=== PATIENT | female | born 1955 | race African-American/Black ===

== ENCOUNTER 2024-10-09 18:25 | Inpatient (IN) ==
--- NOTE | 2024-10-09 18:59 | Emergency Department Note ---
HPI - General Adult General Chief complaint: General Complaint Stated complaint: right side pain, sob Time Seen by Provider: 10/09/24 18:50 Source: patient Mode of arrival: walk-in Limitations: no limitations History of Present Illness HPI narrative: 69-year-old -[place] female, with past medical history significant for chronic bronchitis, hypertension, hyperlipidemia, coronary artery disease and seasonal allergies, presents to the ED this evening with complaints of 1 week history of wheezing, shortness of breath, right flank pain and foul-smelling urine. Admits to subjective fever, chills, nonproductive cough, nasal congestion, sore throat, periumbilical pain and diarrhea. Denies chest pain, nausea and vomiting, dysuria. Periumbilical abdominal pain and right flank pain are described as 5 out of 10 on pain scale, sharp, intermittent, last 2 to 3 minutes, occurs when having a bowel movement, worse with having a bowel movement, better with Bentyl. Onset (ago): week(s) (1) Location: Reports back (R flank) and abdomen (periumbilical) Radiation: Reports non-radiation Severity: moderate Quality: Reports sharp Pain Consistency: Reports intermittent Relieving factors: Reports other (Bentyl) Exacerbating factors: Reports other (coughing and having a bowel movement) Associated symptoms: Reports cough (nonproductive), fever/chills (subjective fever), headaches and malaise; Denies confusion, chest pain, diaphoresis, loss of appetite, nausea/vomiting, rash or syncope Treatments prior to arrival: Reports other (Bentyl and Albuterol Inhaler) Related Data Allergies Allergy/AdvReac Type Severity Reaction Status Date / Time No Known Drug Allergies Allergy Verified 10/09/24 18:38 Review of Systems Status of ROS 10 or more systems reviewed and unremark able except as noted in history and below Constitutional Reports: fever (Subjective), chills and fatigue Eyes Denies: change in vision, light sensitivity, eye discomfort or eye discharge Ears, nose, mouth, and throat Reports: throat pain and nasal congestion; Denies: neck pain, throat swelling, difficulty swallowing, hoarseness or ear pain Cardiovascular Denies: chest pain, palpitations, edema, swelling of feet/ankles or lightheadedness Respiratory Reports: shortness of breath, cough (Nonproductive), wheezing and chest congestion; Denies: stridor or pain on inspiration Gastrointestinal Reports: abdominal pain (See HPI), diarrhea and other (Denies dark, tarry stool); Denies: nausea, vomiting, heartburn, constipation or blood in stool Genitourinary Reports: other (Foul-smelling urine); Denies: painful urination, urinary frequency, urinary urgency, blood in urine, difficulty voiding, decreased urine ouput, pelvic pain, vaginal bleeding or vaginal discharge Musculoskeletal Reports: back pain (Right flank pain); Denies: neck pain, extremity pain, extremity swelling, limited range of motion or muscle weakness Integumentary/Breast Denies: rash, itching, changes in skin color or jaundice Neurological Reports: headache; Denies: numbness in extremities, weakness in extremities, lack of coordination, dizziness or difficulty communicating thoughts Psychiatric Denies: anxiety or difficulty concentrating Endocrine Reports: fatigue; Denies: excessive urination or excessive thirst Hematologic/Lymphatic Denies: easy bruising or easy bleeding Allergic/Immunologic Reports: wheezing and seasonal allergies; Denies: hives, throat swelling, tongue swelling, facial swelling or itchy eyes PFSH PFSH Medical History (Updated 10/09/24 @ 19:13 by Mindy Love APRN) CAD (coronary artery disease) HLD (hyperlipidemia) HTN (hypertension) Bronchitis Surgical History (Updated 10/09/24 @ 19:13 by Mindy Love APRN) History of partial thyroidectomy History of coronary artery bypass graft Social History (Updated 10/09/24 @ 19:13 by Mindy Love APRN) Smoking status: never smoker Within the past year, how often did you have a drink containing alcohol: never Score interpretation: A score less than 3 is consistent with normal alcohol consumption. Non-prescribed substance use: denies use Exam Constitutional: normal general appearance, no apparent distress, abnormal body habitus (overweight), no limitations and alert Vital Signs - 24 hr 10/09/24 18:31 10/09/24 19:00 10/09/24 19:30 Temperature 98.2 F Pulse Rate 105 H 103 H 95 H Respiratory Rate 20 20 20 Blood Pressure 165/88 190/112 198/114 Pulse Oximetry 92 L 92 L 95 Oxygen Delivery Me thod Room Air Room Air Room Air Oxygen Flow Rate 10/09/24 19:45 10/09/24 20:05 12/15/24 20:30 Temperature Pulse Rate 98 H 101 H Respiratory Rate 20 22 Blood Pressure 149/86 168/94 Pulse Oximetry 99 91 L 91 L Oxygen Delivery Me thod Room Air Room Air Oxygen Flow Rate 10/09/24 21:00 10/09/24 21:30 10/09/24 22:00 Temperature Pulse Rate 95 H 93 H 91 H Respiratory Rate 22 25 H 30 H Blood Pressure 158/92 176/81 168/84 Pulse Oximetry 93 L 93 L 94 L Oxygen Delivery Me thod Room Air Nasal Cannula Nasal Cannula Oxygen Flow Rate 2 2 10/09/24 22:30 10/09/24 23:00 Temperature Pulse Rate 91 H 88 Respiratory Rate 31 H 31 H Blood Pressure 176/83 Pulse Oximetry 94 L 95 Oxygen Delivery Me thod Nasal Cannula Nasal Cannula Oxygen Flow Rate 2 2 HENMT: normocephalic, head/scalp atraumatic, hearing grossly normal bilaterally, external ears normal, TMs normal bilaterally, nasal mucous membranes abnormal (nasal discharge) (Mild clear rhinorrhea), external nose normal, oral mucous membranes abnormal (dry) and oropharynx abnormal (erythema) (Mild pharyngeal erythema) Eyes: PERRL, EOMs intact bilaterally, conjunctivae normal, no scleral icterus, alignment normal and periorbital findings normal Neck/C-Spine: visual inspection normal, trachea midline, cervical spine nontender, cervical full ROM noted, supple and no meningeal signs Lymph: no lymphadenopathy noted Chest: inspection of chest normal and palpation of chest normal Respiratory: breath sounds equal bilaterally, normal respiratory effort, auscultation abnormal (diminished breath sound) (Bilateral bases), wheezing noted (expiratory wheezes) (Diffuse) and (inspiratory wheezes) (Diffuse), no rales and no use of accessory muscles Cardiovascular: heart rate abnormal (tachycardic) and regular rhythm noted Gastrointestinal: abdomen normal to inspection, abdomen soft to palpation, tender to palpation (mild), (LLQ), (RLQ), (periumbilical) and (suprapubic), nondistended, abnormal bowel sounds noted (hyperactive bowel sounds), no hepatosplenomegaly and no masses Genitourinary: CVA tenderness noted (Moderate right CVA tenderness) and bladder abnormal to palpation (tender) (Mild) Back/Pelvis: spine normal to inspection, no thoracic spine tenderness, no lumbar spine tenderness, thoracic spine ROM normal and lumbar spine ROM normal Extremities: normal to inspection, normal to palpation, no tenderness, full ROM and no deformity Neurology: radio broadcaster II-XII intact, no movement abnormality noted, no focal motor deficit noted, no sensory deficits noted, gait normal, speech normal, coordination normal and GCS normal Psychiatry: mental status grossly normal, oriented x3, thought process normal, cooperative and affect normal Skin: skin color normal, no rash, skin turgor normal and no jaundice Course Vital Signs Vital signs: Vital Signs Temperature 98.2 F 10/09/24 18:31 Pulse Rate 105 H 10/09/24 18:31 Respiratory Rate 20 10/09/24 18:31 Blood Pressure 165/88 10/09/24 18:31 Pulse Oximetry 92 L 10/09/24 18:31 Oxygen Delivery Method Room Air 10/09/24 18:31 Temperature 98.2 F 10/10/24 02:00 Pulse Rate 83 10/10/24 02:00 Respiratory Rate 25 H 10/10/24 02:00 Blood Pressure 138/85 10/10/24 02:00 Pulse Oximetry 97 10/10/24 02:00 Oxygen Delivery Method Nasal Cannula 10/10/24 02:00 Oxygen Flow Rate 2 10/10/24 02:00 Medical Decision Making MDM Narrative Medical decision making narrative: COVID, influenza and strep swabs are all negative. CBC within normal limits except for WBC 12.9H, MCHC 32.2L. CMP within normal limits except for sodium is 130L, potassium is 3.1L, chloride 94.0L, glucose 168H, AST 39H, total protein 8.7H, albumin 2.9L. Lipase is within normal limits. Initial CPK is elevated at 417H, troponin within normal limits at 28.90. 2-hour repeat CPK and troponin are 415H and 30.10 (WNL). BNP elevated at 559.0H. Lactate is WNL. ABG is within normal limits except for pH 7.49H, pO2 50L, HCO3 20 9.7H, O2 saturation 88L, base excess 5.9H. ABG was obtained on room air. Patient placed on 2 L normal O2 via nasal cannula with improvement in O2 sat from 90% to 96%. Chest x-ray reveals "Findings consistent with minimal CHF or volume overload in the appropriate clinical setting; DDX includes (but is not limited to) bronchitis and interstitial pneumonia in the appropriate clinical setting; recommend noncontrasted CT of chest for further evaluation. D-dimer is elevated at [address] angio chest (PE protocol) with contrast reveals no evidence of PE; otherwise, mild cardiomegaly". Urinalysis is within normal limits except for 4+ protein, 1+ occult blood few amorphous sediment, few bacteria, few mucus. Urine Cx pending. While in ED, patient received 1 L normal saline IV fluid bolus, followed by maintenance fluids of normal saline at 125 mL/hr. She also received 1 albuterol neb and 125 mg IV Solu-Medrol, as well as 40 mEq p.o. potassium. I have discussed the clinical case, including pertinent positives and negatives with Christy and utilization review, and the need for further testing/observation in the inpatient arena. She agrees patient is appropriate for observation status. I have made the patient and family aware of the current disposition plan and they are in agreement. Will admit for rehydration, oxygen administration, IV steroids and respiratory treatments. Differential diagnosis includes: asthma exacerbation, influenza, COVID, viral URI, COPD exacerbation, asthma, interstitial lung disease, myocardial dysfunction, CHF, pulmonary edema, obesity, deconditioning syndrome, pulmonary embolism, bronchitis, pneumonia, rib fractures, pneumothorax, hemothorax, pneumonitis, sepsis, dehydration, nephrolithiasis, pyelonephritis, STEMI, NSTEMI, rhabdomyolysis, respiratory failure. Medical Records Medical records reviewed: Yes I reviewed the patient's medical records Lab Data Lab results reviewed: Yes I reviewed the patient's lab results Labs: Lab Results 10/09/24 10/09/24 10/09/24 Range/Units 18:35 18:59 18:59 WBC (4.3-9.3) K/uL RBC (4.00-5.50) M/uL Hgb (12.5-15.8) gm/dL Hct (35.9-46.7) % MCV (81.0-93.7) fl MCH (27.6-32.2) pg MCHC (33.1-35.3) g/dl RDW (11.4-14.2) % Plt Count (152-353) K/uL MPV (6.9-10.8) fl Gran % (47.8-71.3) % Lymph % (Auto) (20.0-43.0) % [place] % (Auto) (3.6-9.8) % Eos % (Auto) (0.4-2.8) % Baso % (Auto) (0.1-0.85) Lymph # (Auto) (1.1-3.1) [place] # (Auto) (1.1-3.1) Eos # (Auto) (0.0-0.2) Baso # (Auto) (0.0-0.1) Absolute Gran (auto) (2.3-6.0) D-Dimer (100-600) ng/mL ABG pH 7.49 H (7.35-7.45) ABG pCO2 39 (35-45) mmHg ABG pO2 50 L* 101 (60-100) mmHg ABG PO2/FiO2 Ratio 0.50 ABG HCO3 29.7 H (22-26) mmo1/L ABG Total CO2 30.9 mmo1/L ABG O2 Saturation 88 L* (92-100) % ABG Base Excess 5.9 H (-2-2) mmo1/L A-a O2 Gradient 51 mmHg Respiratory Index 1.0 (0-1) FiO2 21 % Sodium (136-145) mmol/L Potassium (3.6-5.2) mmol/L Chloride (98-107) mmol/L Carbon Dioxide (21-32) mmol/L Anion Gap (4-14) mEq/L BUN (7-18) mg/dL Creatinine (0.6-1.3) mg/dL Estimated GFR (>59.9) Glucose (70-110) mg/dL Lactic Acid (0.27-1.43) mmol/L Calcium (8.5-10.1) mg/dL Total Bilirubin (0.0-1.0) mg/dL AST (15-37) U/L ALT (30-65) U/L Alkaline Phosphatase (50-136) U/L Total Creatine Kinase (26-192) U/L Troponin I High Sens (4.0-60.4) ng/L B-Natriuretic Peptide (0-100) pg/mL Total Protein (6.4-8.2) g/dL Albumin (3.4-5.0) g/dL Lipase (16.0-77.0) U/L Urine Color Yellow (STRAW/YELL.) Urine Appearance Clear (CLEAR) Ur Specific [place] 1.015 (1.001-1.035) Urine Protein 4+ (NEGATIVE) Urine Glucose (UA) Normal (NORMAL) Urine Ketones Negative (NEGATIVE) Urine Occult Blood 1+ (NEG - TRACE) Urine Nitrite Negative (NEGATIVE) Urine Bilirubin Negative (NEGATIVE) Urine Urobilinogen Normal (NORMAL) Ur Leukocyte Esterase Negative (NEGATIVE) Urine RBC 0 - 2 (0 - 5) Urine WBC 0 - 2 ( 0 - 5) Ur Epithelial Cells Few (Few/HPF) Amorphous Sediment Few (Negative) Urine Bacteria Few (Negative) Urine Mucus Few (Negative) Urine Trichomonas Negative (Negative) Urine Yeast Negative (Negative) Fluid pH 5.0 (5 - 9) COVID-19 ([facility]) (Not Detectd) Influenza Type A Ag (Negative) Influenza Type B Ag (Negative) Streptococcus Screen (Negative) 10/09/24 10/09/24 10/09/24 Range/Units 19:25 20:20 21:55 WBC 12.9 H (4.3-9.3) K/uL RBC 4.7 (4.00-5.50) M/uL Hgb 13.1 (12.5-15.8) gm/dL Hct 40.8 (35.9-46.7) % MCV 87.2 (81.0-93.7) fl MCH 28.1 (27.6-32.2) pg MCHC 32.2 L (33.1-35.3) g/dl RDW 14.0 (11.4-14.2) % Plt Count 263 (152-353) K/uL MPV 8.3 (6.9-10.8) fl Gran % 70.9 (47.8-71.3) % Lymph % (Auto) 20.6 (20.0-43.0) % [place] % (Auto) 6.8 (3.6-9.8) % Eos % (Auto) 1.1 (0.4-2.8) % Baso % (Auto) 0.6 (0.1-0.85) Lymph # (Auto) 2.7 (1.1-3.1) [place] # (Auto) 0.9 L (1.1-3.1) Eos # (Auto) 0.1 (0.0-0.2) Baso # (Auto) 0.1 (0.0-0.1) Absolute Gran (auto) 9.1 H (2.3-6.0) D-Dimer 1230 H (100-600) ng/mL ABG pH (7.35-7.45) ABG pCO2 (35-45) mmHg ABG pO2 (60-100) mmHg ABG PO2/FiO2 Ratio ABG HCO3 (22-26) mmo1/L ABG Total CO2 mmo1/L ABG O2 Saturation (92-100) % ABG Base Excess (-2-2) mmo1/L A-a O2 Gradient mmHg Respiratory Index (0-1) FiO2 % Sodium 130 L (136-145) mmol/L Potassium 3.1 L (3.6-5.2) mmol/L Chloride 94.0 L (98-107) mmol/L Carbon Dioxide 28 (21-32) mmol/L Anion Gap 8.0 (4-14) mEq/L BUN 6 L (7-18) mg/dL Creatinine 0.8 (0.6-1.3) mg/dL Estimated GFR 79.7 (>59.9) Glucose 168 H (70-110) mg/dL Lactic Acid 0.8 (0.27-1.43) mmol/L Calcium 9.4 (8.5-10.1) mg/dL Total Bilirubin 0.62 (0.0-1.0) mg/dL AST 39 H (15-37) U/L ALT 47 (30-65) U/L Alkaline Phosphatase 105 (50-136) U/L Total Creatine Kinase 417 H 415 H (26-192) U/L Troponin I High Sens 28.90 30.10 (4.0-60.4) ng/L B-Natriuretic Peptide 559.0 H (0-100) pg/mL Total Protein 8.7 H (6.4-8.2) g/dL Albumin 2.9 L (3.4-5.0) g/dL Lipase 16.0 (16.0-77.0) U/L Urine Color (STRAW/YELL.) Urine Appearance (CLEAR) Ur Specific [place] (1.001-1.035) Urine Protein (NEGATIVE) Urine Glucose (UA) (NORMAL) Urine Ketones (NEGATIVE) Urine Occult Blood (NEG - TRACE) Urine Nitrite (NEGATIVE) Urine Bilirubin (NEGATIVE) Urine Urobilinogen (NORMAL) Ur Leukocyte Esterase (NEGATIVE) Urine RBC (0 - 5) Urine WBC ( 0 - 5) Ur Epithelial Cells (Few/HPF) Amorphous Sediment (Negative) Urine Bacteria (Negative) Urine Mucus (Negative) Urine Trichomonas (Negative) Urine Yeast (Negative) Fluid pH (5 - 9) COVID-19 ([facility]) Not detected (Not Detectd) Influenza Type A Ag Negative (Negative) Influenza Type B Ag Negative (Negative) Streptococcus Screen Negative (Negative) Imaging Data Chest x-ray: Attestation: I have reviewed the pertinent imaging results. Radiologist's impression: EXAM: CHEST X-RAY HISTORY: Dyspnea. Cough. Subjective fever. TECHNIQUE: AP chest x-ray dated October 09 2024 at 7:37 PM. COMPARISON: None. FINDINGS: There is aortic atherosclerosis. The patient status post median sternotomy, presumably for CABG. There is evidence for cardiomegaly. The pulmonary vascularity and interstitial markings are diffusely prominent, consistent with minimal CHF or volume overload in the appropriate clinical setting; differential diagnosis includes (but is not limited to) bronchitis and interstitial pneumonia in the appropriate clinical setting. There is no gross focal lung consolidation, pleural effusion, or pneumothorax seen. The visualized bony structures are within normal limits. IMPRESSION: 1. Findings consistent with minimal CHF or volume overload in the appropriate clinical setting; DDX includes (but is not limited to) bronchitis and interstitial pneumonia in the appropriate clinical setting. 2. Recommend clinical correlation and appropriate follow-up CXR evaluation to ensure interval clearance as clinically warranted. 3. Consider follow-up noncontrast chest CT for further characterization as clinically warranted. THIS IS AN ELECTRONICALLY VERIFIED FINAL REPORT 10/09/2024 9:04 PM - Electronically signed by Vasiliy Holman MD CT scan - abdomen: Attestation: I have reviewed the pertinent imaging results. Radiologist's impression: ADDENDUM BEGINS ADDENDUM: Please disregard impression 2. The patient has undergone a cholecystectomy. Impression 2 should read, "Colonic diverticulosis without diverticulitis. " THIS IS AN ELECTRONICALLY VERIFIED FINAL REPORT 10/09/2024 11:37 PM - Electronically signed by Wayne Cool MD EXAM: CT ABDOMEN PELVIS W CON HISTORY: Right flank and periumbilical abdominal pain. COMPARISON: None. TECHNIQUE: Axial CT images of the abdomen and pelvis were obtained after the administration of 100 mL Isovue 370 IV contrast and reformatted into coronal and sagittal planes for further evaluation. Radiation dose: 1942.2 mGy-cm total DLP FINDINGS: Lung bases are clear. Stomach appears normal. Solid visceral organs of the upper abdomen are unremarkable. Status post cholecystectomy. Homogeneous enhancement of the kidneys without hydronephrosis or hydroureter. Unremarkable appearance of the urinary bladder. Small calcified fibroid in the uterine fundus. Otherwise, unremarkable appearance of the reproductive structures. Colonic diverticulosis without diverticulitis. Otherwise, unremarkable appearance of the small and large bowel. No evidence of acute appendicitis; although the appendix is not clearly delineated. No pneumoperitoneum. No significant fluid collection. No adenopathy. No acute osseous abnormality. IMPRESSION: 1. No acute intra-abdominal abnormality detected. 2. Cholelithiasis without imaging findings of acute cholecystitis. THIS IS AN ELECTRONICALLY VERIFIED FINAL REPORT 10/09/2024 10:27 PM - Electronically signed by Wayne Cool MD ADDENDUM ENDS EXAM: CT ABDOMEN PELVIS W CON HISTORY: Right flank and periumbilical abdominal pain. COMPARISON: None. TECHNIQUE: Axial CT images of the abdomen and pelvis were obtained after the administration of 100 mL Isovue 370 IV contrast and reformatted into coronal and sagittal planes for further evaluation. Radiation dose: 1942.2 mGy-cm total DLP FINDINGS: Lung bases are clear. Stomach appears normal. Solid visceral organs of the upper abdomen are unremarkable. Status post cholecystectomy. Homogeneous enhancement of the kidneys without hydronephrosis or hydroureter. Unremarkable appearance of the urinary bladder. Small calcified fibroid in the uterine fundus. Otherwise, unremarkable appearance of the reproductive structures. Colonic diverticulosis without diverticulitis. Otherwise, unremarkable appearance of the small and large bowel. No evidence of acute appendicitis; although the appendix is not clearly delineated. No pneumoperitoneum. No significant fluid collection. No adenopathy. No acute osseous abnormality. IMPRESSION: 1. No acute intra-abdominal abnormality detected. 2. Cholelithiasis without imaging findings of acute cholecystitis. THIS IS AN ELECTRONICALLY VERIFIED FINAL REPORT 10/09/2024 10:27 PM - Electronically signed by Wayne Cool MD CT scan - chest: Attestation: I have reviewed the pertinent imaging results. Radiologist's impression: EXAM: CTA CHEST WITH CONTRAST HISTORY: elevated D Dimer, Dyspneaelevated D Dimer, Dyspnea; 370 isovue, 100 ml hx: htn, cad sx: cabg COMPARISON: None. TECHNIQUE: Axial images were acquired of the chest with IV contrast for a CT angiogram. Coronal and sagittal images were provided. All images were reviewed in a variety of windows and levels. 3D 8 mm thick MIPS images were provided. RADIATION REDUCTION TECHNIQUE: Automated exposure control, Adjustment of the mA and/or kV according to patient size, or iterative reconstruction techniques were used. 8 mm thick axial MIPS images were provided. FINDINGS: THYROID GLAND: The thyroid gland is unremarkable. HEART AND VESSELS: The heart size is mildly enlarged. There is no evidence of a pericardial effusion. The thoracic aorta is normal in size without evidence of aneurysm or dissection. The main pulmonary artery size is within normal limits. There are no filling defects seen in the visualized pulmonary arteries to suggest a pulmonary embolism. LYMPHNODES: There is no evidence of axillary, mediastinal, or hilar lymphadenopathy, AIRWAY: The trachea and mainstem bronchi are patent. No intraluminal lesions are seen. LUNGS: The lungs are clear bilaterally. There is no evidence of consolidation, pleural effusion, or pneumothorax. ESOPHAGUS: The esophagus is grossly unremarkable. BONES: The visualized bones demonstrate degenerative changes. There are no concerning lytic or blastic lesions identified. UPPER ABDOMINAL STRUCTURES: The visualized portions of the upper abdominal structures demonstrate post cholecystectomy changes. IMPRESSION: Negative CT pulmonary angiogram; no evidence of pulmonary embolic disease. Mild cardiomegaly. No active cardiopulmonary disease THIS IS AN ELECTRONICALLY VERIFIED FINAL REPORT 10/09/2024 10:26 PM - Electronically signed by Buster Armenta MD ECG Data Attestation: I personally reviewed and interpreted this ECG as follows: Prior ECG tracings: not available for review Interpretation: Normal sinus rhythm Rate 99 RR 608 Left atrial enlargement Normal [place] Q waves, diffuse flattened T waves, leads III, aVL, aVF, V3, V4, V5, V6 Inverted T waves, leads V1 and V2 Prolonged QTc interval Critical Care Time Critical Care Time Critical Care Time: Yes Total Critical Care Time: 60 Attestation: Cardiopulmonary workup to include continuous cardiac monitoring, oxygen administration, chest x-ray, CT abdomen and pelvis with contrast, CT angio chest (PE protocol) with contrast, EKG, CBC, CMP, lipase, initial and repeat CPK and troponin, BNP, D-dimer, lactic acid, ABG, urinalysis. While in ED patient received 1 L normal saline IV fluid bolus, followed by normal saline at 125 mL/h, 1 albuterol neb, 125 mg IV Solu-Medrol, 40 mEq p.o. potassium. Arrangements made for patient to be admitted to observation status given her hypoxemia and oxygen requirement, rhabdomyolysis, dehydration and electrolyte imbalance. Discharge Plan Discharge Patient Disposition: Admitted As Observation Condition: Improved Clinical Impression: Hypoxemia, Acute dyspnea, Mild cardiomegaly, Periumbilical abdominal pain, Acute dehydration, Acute hyponatremia, Acute hypokalemia, Hypochloremia, Rhabdomyolysis, Acute respiratory alkalosis, Metabolic alkalosis, Proteinuria, Hypoalbuminemia, Leukocytosis, Acute right flank pain, Acute bronchitis, Wheezing, Viral URI Interventions: ED Discharge Assessment Last Done: 10/10/24 02:00 ED Discharge Vital Sign Last Done: 10/10/24 02:00 Emergency Department Charge Sheet Last Done: 10/09/24 23:55 Time of Disposition: 00:08 Discharge Date/Time: 10/10/24 02:00
[2024-10-09] MEDS ORDERED: 0.9 % SODIUM CHLORIDE 1000 ML 1,000 ML IV ONE (19:12)
[2024-10-09] MEDS ORDERED: METHYLPREDNISOLONE SOD SUCC/PF 125 MG/2 ML VIAL ONE (19:13)
[2024-10-09] MEDS: ALBUTEROL SULFATE 2.5 MG/3 ML VIAL.NEB INH STA (19:30)
[2024-10-09] MEDS: 0.9 % SODIUM CHLORIDE 1000 ML 1,000 ML IV STA (19:35)
[2024-10-09] MEDS: METHYLPREDNISOLONE SOD SUCC/PF 125 MG/2 ML VIAL IVP ONE (19:35)
[2024-10-09 19:40] LABS: Basophils #(Absolute) Auto 0.1 (0.0-0.1); Basophils%(Percent) Auto 0.6 (0.1-0.85); Eosinophils#(Absolute)Auto 0.1 (0.0-0.2); Eosinophils%(Percent) Auto 1.1 % (0.4-2.8); Granulocytes % - Auto 70.9 % (47.8-71.3); Granulocytes#(Absolute)- Auto 9.1 (2.3-6.0); Hematocrit 40.8 % (35.9-46.7); Mean Corpuscular Volume 87.2 fl (81.0-93.7); Monocytes #(Absolute)- Auto 0.9 (1.1-3.1); Monocytes %(Percent)- Auto 6.8 % (3.6-9.8); Platelet Count 263 K/uL (152-353); White Blood Count 12.9 K/uL (4.3-9.3)
[2024-10-09 20:00] LABS: Potassium 3.1 mmol/L (3.6-5.2)
[2024-10-09 20:07] LABS: PCO2 ABG 39 mmHg (35-45); pH ABG 7.49 (7.35-7.45)
[2024-10-09 20:08] LABS: Base Excess ABG 5.9 mmo1/L (-2-2); PO2 ABG 50 mmHg (60-100)
[2024-10-09 20:09] LABS: Oxygen Saturation ABG 88 % (92-100)
[2024-10-09] MEDS ORDERED: POTASSIUM CHLORIDE 20 MEQ TAB.ER.PRT PO ONE (20:49)
[2024-10-09] MEDS: POTASSIUM CHLORIDE 20 MEQ TAB.ER.PRT PO ONE (20:50)
[2024-10-09 23:54] LABS: Specific Gravity Urine 1.015 (1.001-1.035); Urine Appearance CLEAR (CLEAR); Urine Blood 1+ (NEG - TRACE); Urine Color YELLOW (STRAW/YELL.); Urine Urobilinogen Normal (NORMAL)
[2024-10-10] MEDS: 0.9 % SODIUM CHLORIDE 1000 ML 1,000 ML IV STA (00:26)
[2024-10-10] MEDS ORDERED: 0.9 % SODIUM CHLORIDE 1000 ML 1,000 ML IV ONE (00:27)
[2024-10-10 00:36] LABS: Urine Amorphous Sediment Few (Negative); Urine Yeast Negative (Negative)
[2024-10-10] MEDS ORDERED: ACETAMINOPHEN 500 MG TABLET PO PRN ×2 (02:13→12:00)
[2024-10-10] MEDS ORDERED: ONDANSETRON HCL/PF 4 MG/2 ML VIAL INJ PRN (02:13)
[2024-10-10] MEDS ORDERED: IBUPROFEN 400 MG TABLET PO PRN ×2 (02:13→12:00)
[2024-10-10] MEDS ORDERED: MAGNESIUM, ALUMINUM HYDROXIDE 30 ML ORAL.SUSP PO PRN (02:13)
[2024-10-10] MEDS ORDERED: bisacodyL 10 MG SUPP.RECT PR PRN (02:13)
[2024-10-10] MEDS: 0.9 % SODIUM CHLORIDE 1000 ML 1,000 ML IV SCH (03:24)
[2024-10-10] MEDS: METHYLPREDNISOLONE SOD SUCC/PF 125 MG/2 ML VIAL IVP ONE (03:27)
[2024-10-10] MEDS ORDERED: ALBUTEROL SULFATE 2.5 MG/3 ML VIAL.NEB INH ONE (04:27)
[2024-10-10] MEDS: ALBUTEROL SULFATE 2.5 MG/3 ML VIAL.NEB INH SCH (05:02)
[2024-10-10] MEDS: METHYLPREDNISOLONE SOD SUCC/PF 40 MG/ML VIAL INJ SCH (09:12)
[2024-10-10] MEDS: ENOXAPARIN SODIUM 40 MG/0.4 ML SYRINGE SUBQ SCH (09:12)
[2024-10-10] MEDS: PANTOPRAZOLE SODIUM 40 MG TABLET.DR PO SCH (09:12)
[2024-10-10] MEDS: guaiFENesin 600 MG TAB.ER.12H PO SCH (12:20)
--- NOTE | 2024-10-10 14:15 | History & Physical Report ---
H&P: HPI History of Present Illness Chief complaint: HYPOXEMIA,DYSPNEA,ACUTE BRONCHITIS,RHABDO,DEHYDRAT Narrative: 69-year-old -[place] female, with past medical history significant for chronic bronchitis, hypertension, hyperlipidemia, coronary artery disease and seasonal allergies, presents to the ED this evening with complaints of 1 week history of wheezing, shortness of breath, right flank pain and foul-smelling urine. Admits to subjective fever, chills, nonproductive cough, nasal congestion, sore throat, periumbilical pain and diarrhea. Denies chest pain, nausea and vomiting, dysuria. Periumbilical abdominal pain and right flank pain are described as 5 out of 10 on pain scale, sharp, intermittent, last 2 to 3 minutes, occurs when having a bowel movement, worse with having a bowel movement, better with Bentyl. Admitted to med/surg for observation and treatment. Review of Systems Status of ROS 10 or more systems reviewed and unremark able except as noted in history and below Constitutional Reports: fever (Subjective), chills and fatigue Eyes Denies: change in vision, light sensitivity, eye discomfort or eye discharge Ears, nose, mouth, and throat Reports: throat pain and nasal congestion; Denies: neck pain, throat swelling, difficulty swallowing, hoarseness or ear pain Cardiovascular Reports: shortness of breath with exertion; Denies: chest pain, palpitations, edema, swelling of feet/ankles or lightheadedness Respiratory Reports: shortness of breath, cough (Nonproductive), wheezing and chest congestion; Denies: stridor or pain on inspiration Gastrointestinal Reports: abdominal pain (See HPI), diarrhea and other (Denies dark, tarry stool); Denies: nausea, vomiting, heartburn, constipation, difficulty swallowing or blood in stool Genitourinary Reports: other (Foul-smelling urine); Denies: painful urination, urinary frequency, urinary urgency, blood in urine, difficulty voiding, decreased urine ouput, pelvic pain, vaginal bleeding or vaginal discharge Musculoskeletal Reports: back pain (Right flank pain); Denies: neck pain, extremity pain, extremity swelling, limited range of motion or muscle weakness Integumentary/Breast Denies: rash, itching, changes in skin color or jaundice Neurological Reports: headache; Denies: numbness in extremities, weakness in extremities, lack of coordination, dizziness or difficulty communicating thoughts Psychiatric Denies: anxiety or difficulty concentrating Endocrine Reports: fatigue; Denies: excessive urination or excessive thirst Hematologic/Lymphatic Denies: easy bruising or easy bleeding Allergic/Immunologic Reports: wheezing and seasonal allergies; Denies: hives, throat swelling, tongue swelling, facial swelling or itchy eyes PFSH PFSH Medical History (Updated 10/10/24 @ 14:09 by LIZ Jin) CAD (coronary artery disease) HLD (hyperlipidemia) HTN (hypertension) Bronchitis Surgical History (Updated 10/09/24 @ 19:13 by Mindy Love APRN) History of partial thyroidectomy History of coronary artery bypass graft Social History (Updated 10/09/24 @ 19:13 by Mindy Love APRN) Smoking status: never smoker Within the past year, how often did you have a drink containing alcohol: never Score interpretation: A score less than 3 is consistent with normal alcohol consumption. Non-prescribed substance use: denies use Problems where you live: no known problems Highest level of school completed/degree received: College Do you think of yourself as: straight/heterosexual Gender Identity: female Meds Home Medications and Allergies Home Medications Medication Instructions Recorded Confirmed Type albuterol sulfate 90 mcg/actuation 1 puff inhalation Q6H PRN 10/10/24 10/10/24 History aerosol inhaler shortness of breath or wheezing amlodipine 10 mg tablet 10 mg PO DAILY 10/10/24 10/10/24 History aspirin 81 mg tablet,delayed 81 mg PO DAILY 10/10/24 10/10/24 History release (Ecotrin Low Strength) atorvastatin 20 mg tablet 20 mg PO DAILY 10/10/24 10/10/24 History cetirizine 10 mg tablet 10 mg PO DAILY PRN allergy symptoms 10/10/24 10/10/24 History diclofenac sodium 75 mg 75 mg PO BID 10/10/24 10/10/24 History tablet,delayed release fexofenadine 180 mg tablet 180 mg PO DAILY PRN allergy 10/10/24 10/10/24 History (Allergy Relief (fexofenadine)) symptoms fluticasone propionate 100 1 inh inhalation BID 10/10/24 10/10/24 History mcg/actuation blister powder for inhalation (Flovent Diskus) fluticasone propionate 50 1 spray intranasal DAILY 10/10/24 10/10/24 History mcg/actuation nasal spray,suspension metoprolol tartrate 25 mg tablet 12.5 mg PO BID 10/10/24 10/10/24 History sertraline 50 mg tablet 50 mg PO BEDTIME 10/10/24 10/10/24 History Allergies Allergy/AdvReac Type Severity Reaction Status Date / Time No Known Drug Allergies Allergy Verified 10/09/24 18:38 Exam Exam: Patient in parson's position upon entering room for exam with family member at bedside. Constitutional: normal general appearance, no apparent distress, abnormal body habitus (overweight), no limitations and alert Vital Signs - 24 hr 10/09/24 18:31 10/09/24 19:00 10/09/24 19:30 Temperature 98.2 F Pulse Rate 105 H 103 H 95 H Pulse Rate [Left] Respiratory Rate 20 20 20 Blood Pressure 165/88 190/112 198/114 Blood Pressure [Le ft Arm] Pulse Oximetry 92 L 92 L 95 Oxygen Delivery Me thod Room Air Room Air Room Air Oxygen Flow Rate 10/09/24 19:45 10/09/24 20:05 10/09/24 20:30 Temperature Pulse Rate 98 H 101 H Pulse Rate [Left] Respiratory Rate 20 22 Blood Pressure 149/86 168/94 Blood Pressure [Le ft Arm] Pulse Oximetry 99 91 L 91 L Oxygen Delivery Me thod Room Air Room Air Oxygen Flow Rate 10/09/24 21:00 10/09/24 21:30 10/09/24 22:00 Temperature Pulse Rate 95 H 93 H 91 H Pulse Rate [Left] Respiratory Rate 22 25 H 30 H Blood Pressure 158/92 176/81 168/84 Blood Pressure [Le ft Arm] Pulse Oximetry 93 L 93 L 94 L Oxygen Delivery Me thod Room Air Nasal Cannula Nasal Cannula Oxygen Flow Rate 2 2 10/09/24 22:30 10/09/24 23:00 10/10/24 01:00 Temperature Pulse Rate 91 H 88 88 Pulse Rate [Left] Respiratory Rate 31 H 31 H 22 Blood Pressure 176/83 137/87 Blood Pressure [Le ft Arm] Pulse Oximetry 94 L 95 94 L Oxygen Delivery Me thod Nasal Cannula Nasal Cannula Nasal Cannula Oxygen Flow Rate 2 2 2 10/10/24 02:00 10/10/24 02:00 10/10/24 02:15 Temperature 98.2 F Pulse Rate 83 83 Pulse Rate [Left] Respiratory Rate 25 H 25 H 28 H Blood Pressure 138/85 138/85 Blood Pressure [Le ft Arm] Pulse Oximetry 97 97 98 Oxygen Delivery Me thod Nasal Cannula Nasal Cannula Oxygen Flow Rate 2 2 10/10/24 04:00 10/10/24 05:02 10/10/24 07:40 Temperature 97.9 F Pulse Rate Pulse Rate [Left] 79 Respiratory Rate 17 Blood Pressure Blood Pressure [Le ft Arm] 142/76 Pulse Oximetry 95 93 L Oxygen Delivery Me thod Nasal Cannula Nasal Cannula Oxygen Flow Rate 2 10/10/24 07:40 10/10/24 08:15 10/10/24 11:23 Temperature 97.7 F Pulse Rate Pulse Rate [Left] 75 Respiratory Rate 19 Blood Pressure Blood Pressure [Le ft Arm] 135/73 Pulse Oximetry 92 L 96 98 Oxygen Delivery Me thod Nasal Cannula Nasal Cannula Oxygen Flow Rate 1 0.5 10/10/24 12:43 Temperature 98.3 F Pulse Rate Pulse Rate [Left] 84 Respiratory Rate 19 Blood Pressure Blood Pressure [Le ft Arm] 132/62 Pulse Oximetry 97 Oxygen Delivery Me thod Room Air Oxygen Flow Rate HENMT: normocephalic, head/scalp atraumatic, hearing grossly normal bilaterally, external ears normal, TMs normal bilaterally, nasal mucous membranes abnormal (nasal discharge) (Mild clear rhinorrhea), external nose normal, oral mucous membranes abnormal (dry) and oropharynx abnormal (erythema) (Mild pharyngeal erythema) Eyes: PERRL, EOMs intact bilaterally, conjunctivae normal, no scleral icterus, alignment normal and periorbital findings normal Neck/C-Spine: visual inspection normal, trachea midline, cervical spine nontender, cervical full ROM noted, supple and no meningeal signs Lymph: no lymphadenopathy noted Chest: inspection of chest normal and palpation of chest normal Respiratory: breath sounds equal bilaterally, normal respiratory effort, auscultation abnormal (diminished breath sound) (Bilateral bases), wheezing noted (expiratory wheezes) (Diffuse) and (inspiratory wheezes) (Diffuse), no rales and no use of accessory muscles Cardiovascular: heart rate abnormal (tachycardic) and regular rhythm noted Gastrointestinal: abdomen normal to inspection, abdomen soft to palpation, tender to palpation (mild), (LLQ), (RLQ), (periumbilical) and (suprapubic), nondistended, abnormal bowel sounds noted (hyperactive bowel sounds), no hepatosplenomegaly and no masses Genitourinary: CVA tenderness noted (Moderate right CVA tenderness) and bladder abnormal to palpation (tender) (Mild) Back/Pelvis: spine normal to inspection, no thoracic spine tenderness, no lumbar spine tenderness, thoracic spine ROM normal and lumbar spine ROM normal Extremities: normal to inspection, normal to palpation, no tenderness, full ROM and no deformity 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: 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, no movement abnormality noted, no focal motor deficit noted, no sensory deficits noted, gait normal, speech normal, coordination normal and GCS normal Psychiatry: mental status grossly normal, oriented x3, thought process normal, cooperative and affect normal Skin: skin color normal, no rash, skin turgor normal and no jaundice Assessment and Plan Assessment and Plan (1) Acute bronchitis: Code(s): J20.9 - Acute bronchitis, unspecified (2) SOB (shortness of breath): Code(s): R06.02 - Shortness of breath (3) Hypoxia: Code(s): R09.02 - Hypoxemia (4) Dyspnea: Code(s): R06.00 - Dyspnea, unspecified (5) Rhabdomyolysis: Code(s): M62.82 - Rhabdomyolysis (6) Dehydration: Code(s): E86.0 - Dehydration Plan Sodium Chloride 1,000 mls @ 125 mls/hr IV CONT Methylprednisolone Sodium Succinate 40 mg INJ Q8H Albuterol 2.5 mg INH RQ4 Pantoprazole Sodium 40 mg PO Daily Enoxaparin Sodium 40 mg SUBQ Daily Guaifenesin 600 mg PO BID Acetaminophen 1,000 mg PO Q6H PRN Magnesium Hydroxide 30 ml PO Daily PRN Bisacodyl 10 mg IA Daily PRN Ibuprofen 600 mg PO Q8H PRN Ondansetron Hcl 4 mg INJ Q6H PRN Results Labs Labs: CBC WBC 12.9 K/uL (4.3-9.3) H 10/09/24 19:25 RBC 4.7 M/uL (4.00-5.50) 10/09/24 19:25 Hgb 13.1 gm/dL (12.5-15.8) 10/09/24 19:25 Hct 40.8 % (35.9-46.7) 10/09/24 19:25 MCV 87.2 fl (81.0-93.7) 10/09/24 19: MCH 28.1 pg (27.6-32.2) 10/09/24 19: MCHC 32.2 g/dl (33.1-35.3) L 10/09/24 19:25 RDW 14.0 % (11.4-14.2) 10/09/24 19:25 Plt Count 263 K/uL (152-353) 10/09/24 19:25 MPV 8.3 fl (6.9-10.8) 10/09/24 19:25 Gran % 70.9 % (47.8-71.3) 10/09/24 19: Lymph % (Auto) 20.6 % (20.0-43.0) 10/09/24: Ness % (Auto) 6.8 % (3.6-9.8) 10/09/24 19:25 Eos % (Auto) 1.1 % (0.4-2.8) 10/09/24 19: Baso % (Auto) 0.6 (0.1-0.85) 10/09/24 19:25 Lymph # (Auto) 2.7 (1.1-3.1) 10/09/24 19:25 Ness # (Auto) 0.9 (1.1-3.1) L 10/09/24 19:25 Eos # (Auto) 0.1 (0.0-0.2) 10/09/24 19:25 Baso # (Auto) 0.1 (0.0-0.1) 10/09/24: Absolute Gran (auto) 9.1 (2.3-6.0) H 10/09/24 19:25 BMP Sodium 130 mmol/L (136-145) L 10/09/24 19:25 Potassium 3.1 mmol/L (3.6-5.2) L 10/09/24 19:25 Chloride 94.0 mmol/L (98-107) L 10/09/24 19:25 Carbon Dioxide 28 mmol/L (21-32) 10/09/24 19:25 Anion Gap 8.0 mEq/L (4-14) 10/09/24 19:25 BUN 6 mg/dL (7-18) L 10/09/24 19:25 Creatinine 0.8 mg/dL (0.6-1.3) 10/09/24 19:25 Estimated GFR 79.7 (>59.9) 10/09/24 19:25 Glucose 168 mg/dL (70-110) H 10/09/24 19:25 Calcium 9.4 mg/dL (8.5-10.1) 10/09/24 19:25 Total Bilirubin 0.62 mg/dL (0.0-1.0) 10/09/24 19:25 AST 39 U/L (15-37) H 10/09/24 19:25 ALT 47 U/L (30-65) 10/09/24 19:25 Alkaline Phosphatase 105 U/L (50-136) 10/09/24 19:25 Total Protein 8.7 g/dL (6.4-8.2) H 10/09/24 19:25 Albumin 2.9 g/dL (3.4-5.0) L 10/09/24 19:25 Cardiac Enzymes Troponin I High Sens 30.10 ng/L (4.0-60.4) 10/09/24 21:55 Liver Function Total Bilirubin 0.62 mg/dL (0.0-1.0) 10/09/24 19:25 AST 39 U/L (15-37) H 10/09/24 19:25 ALT 47 U/L (30-65) 10/09/24 19:25 Alkaline Phosphatase 105 U/L (50-136) 10/09/24 19:25 Total Protein 8.7 g/dL (6.4-8.2) H 10/09/24 19:25 Albumin 2.9 g/dL (3.4-5.0) L 10/09/24 19:25 Urine Urine Color Yellow (STRAW/YELL.) 10/09/24 18:35 Urine Appearance Clear (CLEAR) 10/09/24 18:35 Ur Specific [place] 1.015 (1.001-1.035) 10/09/24 18:35 Urine Protein 4+ (NEGATIVE) 10/09/24 18:35 Urine Glucose (UA) Normal (NORMAL) 10/09/24 18:35 Urine Ketones Negative (NEGATIVE) 10/09/24 18:35 Urine Occult Blood 1+ (NEG - TRACE) 10/09/24 18:35 Urine Nitrite Negative (NEGATIVE) 10/09/24 18:35 Urine Bilirubin Negative (NEGATIVE) 10/09/24 18:35 Urine Urobilinogen Normal (NORMAL) 10/09/24 18:35 Ur Leukocyte Esterase Negative (NEGATIVE) 10/09/24 18:35 ABG ABG results: 10/09/24 18:59 ABG pH 7.49 H ABG pCO2 39 ABG pO2 101 ABG HCO3 29.7 H ABG Total CO2 30.9 ABG O2 Saturation 88 L* ABG Base Excess 5.9 H Imaging Imaging ordered: Chest x-ray, CT scan - abdomen and CT scan - chest Radiologist's impression: CHEST X-RAY HISTORY: Dyspnea. Cough. Subjective fever. TECHNIQUE: AP chest x-ray dated October 09 2024 at 7:37 PM. COMPARISON: None. FINDINGS: There is aortic atherosclerosis. The patient status post median sternotomy, presumably for CABG. There is evidence for cardiomegaly. The pulmonary vascularity and interstitial markings are diffusely prominent, consistent with minimal CHF or volume overload in the appropriate clinical setting; differential diagnosis includes (but is not limited to) bronchitis and interstitial pneumonia in the appropriate clinical setting. There is no gross focal lung consolidation, pleural effusion, or pneumothorax seen. The visualized bony structures are within normal limits. IMPRESSION: 1. Findings consistent with minimal CHF or volume overload in the appropriate clinical setting; DDX includes (but is not limited to) bronchitis and interstitial pneumonia in the appropriate clinical setting. 2. Recommend clinical correlation and appropriate follow-up CXR evaluation to ensure interval clearance as clinically warranted. 3. Consider follow-up noncontrast chest CT for further characterization as clinically warranted. Please disregard impression 2. The patient has undergone a cholecystectomy. Impression 2 should read, "Colonic diverticulosis without diverticulitis. " THIS IS AN ELECTRONICALLY VERIFIED FINAL REPORT 10/09/2024 11:37 PM - Electronically signed by Wayne Cool MD EXAM: CT ABDOMEN PELVIS W CON HISTORY: Right flank and periumbilical abdominal pain. COMPARISON: None. TECHNIQUE: Axial CT images of the abdomen and pelvis were obtained after the administration of 100 mL Isovue 370 IV contrast and reformatted into coronal and sagittal planes for further evaluation. Radiation dose: 1942.2 mGy-cm total DLP FINDINGS: Lung bases are clear. Stomach appears normal. Solid visceral organs of the upper abdomen are unremarkable. Status post cholecystectomy. Homogeneous enhancement of the kidneys without hydronephrosis or hydroureter. Unremarkable appearance of the urinary bladder. Small calcified fibroid in the uterine fundus. Otherwise, unremarkable appearance of the reproductive structures. Colonic diverticulosis without diverticulitis. Otherwise, unremarkable appearance of the small and large bowel. No evidence of acute appendicitis; although the appendix is not clearly delineated. No pneumoperitoneum. No significant fluid collection. No adenopathy. No acute osseous abnormality. IMPRESSION: 1. No acute intra-abdominal abnormality detected. 2. Cholelithiasis without imaging findings of acute cholecystitis. CTA CHEST WITH CONTRAST HISTORY: elevated D Dimer, Dyspneaelevated D Dimer, Dyspnea; 370 isovue, 100 ml hx: htn, cad sx: cabg COMPARISON: None. TECHNIQUE: Axial images were acquired of the chest with IV contrast for a CT angiogram. Coronal and sagittal images were provided. All images were reviewed in a variety of windows and levels. 3D 8 mm thick MIPS images were provided. RADIATION REDUCTION TECHNIQUE: Automated exposure control, Adjustment of the mA and/or kV according to patient size, or iterative reconstruction techniques were used. 8 mm thick axial MIPS images were provided. FINDINGS: THYROID GLAND: The thyroid gland is unremarkable. HEART AND VESSELS: The heart size is mildly enlarged. There is no evidence of a pericardial effusion. The thoracic aorta is normal in size without evidence of aneurysm or dissection. The main pulmonary artery size is within normal limits. There are no filling defects seen in the visualized pulmonary arteries to suggest a pulmonary embolism. LYMPHNODES: There is no evidence of axillary, mediastinal, or hilar lymphadenopathy, AIRWAY: The trachea and mainstem bronchi are patent. No intraluminal lesions are seen. LUNGS: The lungs are clear bilaterally. There is no evidence of consolidation, pleural effusion, or pneumothorax. ESOPHAGUS: The esophagus is grossly unremarkable. BONES: The visualized bones demonstrate degenerative changes. There are no concerning lytic or blastic lesions identified. UPPER ABDOMINAL STRUCTURES: The visualized portions of the upper abdominal structures demonstrate post cholecystectomy changes. IMPRESSION: Negative CT pulmonary angiogram; no evidence of pulmonary embolic disease. Mild cardiomegaly. No active cardiopulmonary disease
[2024-10-11 06:52] LABS: Basophils%(Percent) Auto 0.2 (0.1-0.85); Granulocytes % - Auto 86.5 % (47.8-71.3); Granulocytes#(Absolute)- Auto 10.8 (2.3-6.0); Hematocrit 36.4 % (35.9-46.7); Mean Corpuscular Volume 86.1 fl (81.0-93.7); Monocytes #(Absolute)- Auto 0.5 (1.1-3.1); Monocytes %(Percent)- Auto 3.7 % (3.6-9.8); Platelet Count 302 K/uL (152-353); White Blood Count 12.5 K/uL (4.3-9.3)
[2024-10-11] MEDS: METOPROLOL TARTRATE 25 MG TABLET PO SCH (12:40)
[2024-10-11] MEDS: ASPIRIN 81 MG TABLET.DR PO SCH (12:40)
[2024-10-11] MEDS: DICLOFENAC SODIUM 75 MG TABLET.DR PO SCH (12:40)
[2024-10-11] MEDS: AMLODIPINE BESYLATE 5 MG TABLET PO SCH (12:40)
--- NOTE | 2024-10-11 18:31 | Progress Note ---
<Statement entered by Bruno Nielson MD - 10/12/24 07:12> This documentation has been reviewed and approved. Progress Note: Subjective Subjective Interval history: Patient is a 69 year old female admitted to med/surg on 10/10/2024. Patient's chief complaint today is pain in the right upper quadrant of abdomen. She also has pleurisy and dry cough. Of note, she did have prior laparoscopic cholecystectomy as scars are visible on her abdomen. Exam Exam: Patient was in high parson's position upon entering room for exam. Constitutional: normal general appearance, no apparent distress, abnormal body habitus (overweight), no limitations and alert Vital Signs - 24 hr 10/10/24 20:00 10/10/24 20:21 10/10/24 23:38 Temperature 97.4 F L 98.3 F Pulse Rate Pulse Rate [Left] 84 69 Respiratory Rate 21 19 Blood Pressure Blood Pressure [Le ft Arm] 155/89 154/74 Pulse Oximetry 95 94 L 93 L Oxygen Delivery Me thod Room Air Room Air Fraction of Inspir ed Oxygen 10/11/24 00:14 10/11/24 03:39 10/11/24 08:00 Temperature 98.5 F 98.3 F Pulse Rate Pulse Rate [Left] 66 85 Respiratory Rate 18 18 Blood Pressure Blood Pressure [Le ft Arm] 131/66 148/88 Pulse Oximetry 94 L 91 L 93 L Oxygen Delivery Me thod Room Air Room Air Fraction of Inspir ed Oxygen 10/11/24 09:09 10/11/24 09:09 10/11/24 12:00 Temperature 98.3 F Pulse Rate Pulse Rate [Left] 87 Respiratory Rate 18 Blood Pressure Blood Pressure [Le ft Arm] 156/79 Pulse Oximetry 94 L 94 L 93 L Oxygen Delivery Me thod Room Air Room Air Fraction of Inspir ed Oxygen 21 10/11/24 12:40 10/11/24 12:40 10/11/24 15:37 Temperature Pulse Rate 87 Pulse Rate [Left] Respiratory Rate Blood Pressure 156/79 156/79 Blood Pressure [Le ft Arm] Pulse Oximetry 93 L Oxygen Delivery Me thod Fraction of Inspir ed Oxygen 10/11/24 15:52 Temperature 98.3 F Pulse Rate Pulse Rate [Left] 72 Respiratory Rate 19 Blood Pressure Blood Pressure [Le ft Arm] 144/77 Pulse Oximetry 92 L Oxygen Delivery Me thod Room Air Fraction of Inspir ed Oxygen HENMT: normocephalic, head/scalp atraumatic, hearing grossly normal bila terally, external ears normal, TMs normal bilaterally, nasal mucous membranes abnormal (nasal discharge) (Mild clear rhinorrhea), external nose normal, oral mucous membranes abnormal (dry) and oropharynx abnormal (erythema) (Mild pharyngeal erythema) Eyes: PERRL, EOMs intact bilaterally, conjunctivae normal, no scleral icterus, alignment normal and periorbital findings normal Neck/C-Spine: visual inspection normal, trachea midline, cervical spine nontender, cervical full ROM noted, supple and no meningeal signs Lymph: no lymphadenopathy noted Chest: inspection of chest normal and palpation of chest normal Respiratory: breath sounds equal bilaterally, normal respiratory effort, auscultation abnormal (diminished breath sound) (Bilateral bases), wheezing noted (expiratory wheezes) (Diffuse) and (inspiratory wheezes) (Diffuse), rales noted and no use of accessory muscles has basilar fine crackles worse on the right lower lung field Cardiovascular: heart rate abnormal (tachycardic) and regular rhythm noted Gastrointestinal: abdomen normal to inspection, abdomen soft to palpation, tender to palpation (mild) and (RUQ), nondistended, normoactive bowel sounds, no hepatosplenomegaly and no masses tender RUQ Genitourinary: no CVA tenderness and bladder normal to palpation Back/Pelvis: spine normal to inspection, no thoracic spine tenderness, no lumbar spine tenderness, thoracic spine ROM normal and lumbar spine ROM normal Extremities: normal to inspection, normal to palpation, no tenderness, full ROM and no deformity 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, no movement abnormality noted, no focal motor de ficit noted, no sensory deficits noted, gait normal, speech normal, coordination normal and GCS normal Psychiatry: mental status grossly normal, oriented x3, thought process normal, cooperative and affect normal Skin: skin color normal, no rash, skin turgor normal and no jaundice Progress Note: Objective Labs Labs: CBC WBC 12.5 K/uL (4.3-9.3) H 10/11/24 06:35 RBC 4.2 M/uL (4.00-5.50) 10/11/24 06:35 Hgb 12.0 gm/dL (12.5-15.8) L 10/11/24 06:35 Hct 36.4 % (35.9-46.7) 10/11/24 06:35 MCV 86.1 fl (81.0-93.7) 10/11/24 06:35 MCH 28.5 pg (27.6-32.2) 10/11/24 06:35 MCHC 33.1 g/dl (33.1-35.3) 10/11/24 06:35 RDW 14.4 % (11.4-14.2) H 10/11/24 06:35 Plt Count 302 K/uL (152-353) 10/11/24 06:35 MPV 8.5 fl (6.9-10.8) 10/11/24 06:35 Gran % 86.5 % (47.8-71.3) H 10/11/24 06:35 Lymph % (Auto) 9.6 % (20.0-43.0) L 10/11/24 06:35 [place] % (Auto) 3.7 % (3.6-9.8) 10/11/24 06:35 Eos % (Auto) 0.0 % (0.4-2.8) L 10/11/24 06:35 Baso % (Auto) 0.2 (0.1-0.85) 10/11/24 06:35 Lymph # (Auto) 1.2 (1.1-3.1) 10/11/24 06:35 [place] # (Auto) 0.5 (1.1-3.1) L 10/11/24 06:35 Eos # (Auto) 0.0 (0.0-0.2) 10/11/24 06:35 Baso # (Auto) 0.0 (0.0-0.1) 10/11/24 06:35 Absolute Gran (auto) 10.8 (2.3-6.0) H 10/11/24 06:35 BMP Sodium 139 mmol/L (136-145) 10/11/24 06:35 Potassium 4.0 mmol/L (3.6-5.2) 10/11/24 06:35 Chloride 103.0 mmol/L (98-107) 10/11/24 06:35 Carbon Dioxide 29 mmol/L (21-32) 10/11/24 06:35 Anion Gap 7.0 mEq/L (4-14) 10/11/24 06:35 BUN 14 mg/dL (7-18) 10/11/24 06:35 Creatinine 0.8 mg/dL (0.6-1.3) 10/11/24 06:35 Estimated GFR 79.7 (>59.9) 10/11/24 06:35 Glucose 365 mg/dL (70-110) H 10/11/24 06:35 Calcium 9.4 mg/dL (8.5-10.1) 10/11/24 06:35 Total Bilirubin 0.34 mg/dL (0.0-1.0) 10/11/24 06:35 AST 25 U/L (15-37) 10/11/24 06:35 ALT 48 U/L (30-65) 10/11/24 06:35 Alkaline Phosphatase 96 U/L (50-136) 10/11/24 06:35 Total Protein 8.2 g/dL (6.4-8.2) 10/11/24 06:35 Albumin 2.7 g/dL (3.4-5.0) L 10/11/24 06:35 Cardiac Enzymes Troponin I High Sens 30.10 ng/L (4.0-60.4) 10/09/24 21:55 Liver Function Total Bilirubin 0.34 mg/dL (0.0-1.0) 10/11/24 06:35 AST 25 U/L (15-37) 10/11/24 06:35 ALT 48 U/L (30-65) 10/11/24 06:35 Alkaline Phosphatase 96 U/L (50-136) 10/11/24 06:35 Total Protein 8.2 g/dL (6.4-8.2) 10/11/24 06:35 Albumin 2.7 g/dL (3.4-5.0) L 10/11/24 06:35 Urine Urine Color Yellow (STRAW/YELL.) 10/09/24 18:35 Urine Appearance Clear (CLEAR) 10/09/24 18:35 Ur Specific [place] 1.015 (1.001-1.035) 10/09/24 18:35 Urine Protein 4+ (NEGATIVE) 10/09/24 18:35 Urine Glucose (UA) Normal (NORMAL) 10/09/24 18:35 Urine Ketones Negative (NEGATIVE) 10/09/24 18:35 Urine Occult Blood 1+ (NEG - TRACE) 10/09/24 18:35 Urine Nitrite Negative (NEGATIVE) 10/09/24 18:35 Urine Bilirubin Negative (NEGATIVE) 10/09/24 18:35 Urine Urobilinogen Normal (NORMAL) 10/09/24 18:35 Ur Leukocyte Esterase Negative (NEGATIVE) 10/09/24 18:35 Progress Note: A&P Assessment and Plan (1) Acute bronchitis: (2) SOB (shortness of breath): (3) Hypoxia: (4) Dyspnea: (5) Rhabdomyolysis: (6) Dehydration: (7) Mild cardiomegaly: Plan Sodium Chloride 1,000 mls @ 125 mls/hr IV CONT - Considering decrease to 85 ml/hr Methylprednisolone Sodium Succinate 40 mg INJ Q8H Albuterol 2.5 mg INH RQ4 Pantoprazole Sodium 40 mg PO Daily Enoxaparin Sodium 40 mg SUBQ Daily Guaifenesin 600 mg PO BID Amlodipine Besylate 10 mg PO Daily Aspirin 81 mg PO Daily Diclofenac Sodium 75 mg PO BID Flovent Diskus 1 INH BID Metoprolol Tartrate 12.5 mg PO BID Sertraline Hcl 50 mg PO BEDTIME Acetaminophen 1,000 mg PO Q6H PRN Magnesium Hydroxide 30 ml PO Daily PRN Bisacodyl 10 mg [place] Daily PRN Ibuprofen 600 mg PO Q8H PRN Ondansetron Hcl 4 mg INJ Q6H PRN Consider adding Rocephyn 2 gm IV Q24H Repeat CBC, and D-DIMER in AM Repeat CXR PA/L Now - suspected Pleurisy Rt Lobe Abdominal US Now Fall Risk Details Fang Fall Scale Risk Level: Moderate Fall Risk Current Medications: Current Medications Acetaminophen (Acetaminophen 500 Mg Tablet) 1,000 mg PO Q6H PRN PRN Reason: MILD PAIN SCALE 1-4 Acetaminophen (Acetaminophen 500 Mg Tablet) 1,000 mg PO Q6H PRN PRN Reason: Fever OF 100.5 OR GREATER Albuterol (Albuterol Sulfate 2.5 Mg/3 Ml Vial.Neb) 2.5 mg INH RQ4 [facility] Last Admin: 10/11/24 15:37 Dose: 2.5 mg Amlodipine Besylate (Amlodipine Besylate 5 Mg Tablet) 10 mg PO DAILY [facility] Last Admin: 10/11/24 12:40 Dose: 10 mg Aspirin (Aspirin 81 Mg Tablet.) 81 mg PO DAILY [facility] Last Admin: 10/11/24 12:40 Dose: 81 mg Bisacodyl (Bisacodyl 10 Mg Supp.Rect) 10 mg [place] DAILY PRN PRN Reason: constipation Diclofenac Sodium (Diclofenac Sodium 75 Mg Tablet.) 75 mg PO BID [facility] Last Admin: 10/11/24 12:40 Dose: Not Given Enoxaparin Sodium (Enoxaparin Sodium 40 Mg/0.4 Ml Syringe) 40 mg SUBQ DAILY [facility] Last Admin: 10/11/24 09:36 Dose: 40 mg Guaifenesin (Guaifenesin 600 Mg Tab.Er.12h) 600 mg PO BID [facility] Last Admin: 10/11/24 09:36 Dose: 600 mg Sodium Chloride (Sodium Chloride) 1,000 mls @ 125 mls/hr IV CONT [facility] Last Admin: 10/11/24 15:30 Dose: 85 mls/hr Ibuprofen (Ibuprofen 400 Mg Tablet) 600 mg PO Q8H PRN PRN Reason: MILD PAIN SCALE 1-4 Ibuprofen (Ibuprofen 400 Mg Tablet) 600 mg PO Q8H PRN PRN Reason: Fever OF 100.5 OR GREATER Magnesium Hydroxide (Magnesium, Aluminum Hydroxide 30 Ml Oral.Susp) 30 ml PO DAILY PRN PRN Reason: Heartburn Methylprednisolone Sodium Succinate (Methylprednisolone Sod Succ/Pf 40 Mg/Ml Vial) 40 mg INJ Q8H [facility] Last Admin: 10/11/24 15:30 Dose: 40 mg Metoprolol Tartrate (Metoprolol Tartrate 25 Mg Tablet) 12.5 mg PO BID [facility] Last Admin: 10/11/24 12:40 Dose: 12.5 mg Non-Formulary Medication (Fluticasone Propionate [Flovent Diskus]) 1 inhalation INH BID [facility] Ondansetron HCl (Ondansetron Hcl/Pf 4 Mg/2 Ml Vial) 4 mg INJ Q6H PRN PRN Reason: Nausea And Vomiting Pantoprazole Sodium (Pantoprazole Sodium 40 Mg Tablet.) 40 mg PO DAILY [facility] Last Admin: 10/11/24 09:36 Dose: 40 mg Sertraline HCl (Sertraline Hcl 50 Mg Tablet) 50 mg PO BEDTIME [facility] Time Spent With Patient Time: Total time spent is greater than 50% in coordination of care (as documented) at patient's floor/unit and/or counseling patient:
[2024-10-11] MEDS: [UNRECOGNIZED DRUG - OTHER] INH SCH (20:09)
[2024-10-11] MEDS: FLUTICASONE PROPIONATE INH SCH (20:09)
[2024-10-11] MEDS: SERTRALINE HCL 50 MG TABLET PO SCH (20:09)
[2024-10-12 07:23] LABS: Basophils%(Percent) Auto 0.2 (0.1-0.85); Granulocytes % - Auto 88.9 % (47.8-71.3); Granulocytes#(Absolute)- Auto 8.9 (2.3-6.0); Mean Corpuscular Volume 86.6 fl (81.0-93.7); Monocytes #(Absolute)- Auto 0.3 (1.1-3.1); Monocytes %(Percent)- Auto 2.8 % (3.6-9.8); Platelet Count 341 K/uL (152-353)
[2024-10-12] MEDS: AMOXICILLIN/POTASSIUM CLAV 875/125 MG TABLET PO SCH (09:19)
--- NOTE | 2024-10-12 11:13 | Progress Note ---
Progress Note: Subjective Subjective Interval history: Patient is a 69 year old female admitted to med/surg on 10/10/2024. Patient states she is feeling better today than yesterday. Daughter of patient was at bedside, she informed provider, patient has been experiencing symptoms for one weeks prior to going to hospital. Started patient on Amoxicillin/Clavulanate Potassium 875 mg PO BID. Provider will change all medications to PO tomorrow morning if PO med tolerated well today. Exam Exam: Patient sitting up in bed talking to family member upon entering room for exam. Constitutional: normal general appearance, no apparent distress, abnormal body habitus (overweight), no limitations and alert Vital Signs - 24 hr 10/11/24 12:00 10/11/24 12:40 10/11/24 12:40 Temperature 98.3 F Pulse Rate 87 Pulse Rate [Left] 87 Respiratory Rate 18 Blood Pressure 156/79 156/79 Blood Pressure [Le ft Arm] 156/79 Pulse Oximetry 93 L Oxygen Delivery Me thod Room Air 10/11/24 15:37 10/11/24 15:52 10/11/24 19:40 Temperature 98.3 F 97.9 F Pulse Rate Pulse Rate [Left] 72 79 Respiratory Rate 19 19 Blood Pressure Blood Pressure [Le ft Arm] 144/77 159/87 Pulse Oximetry 93 L 92 L 97 Oxygen Delivery Me thod Room Air Room Air 10/11/24 20:09 10/11/24 20:35 10/11/24 23:24 Temperature Pulse Rate 79 Pulse Rate [Left] Respiratory Rate Blood Pressure Blood Pressure [Le ft Arm] Pulse Oximetry 93 L 94 L Oxygen Delivery Me thod 10/11/24 23:45 10/12/24 03:51 10/12/24 07:47 Temperature 98.5 F 98.0 F 97.8 F Pulse Rate Pulse Rate [Left] 71 63 81 Respiratory Rate 17 21 19 Blood Pressure Blood Pressure [Le ft Arm] 140/77 149/91 155/83 Pulse Oximetry 93 L 94 L 92 L Oxygen Delivery Me thod Room Air Room Air Room Air 10/12/24 07:50 Temperature Pulse Rate Pulse Rate [Left] Respiratory Rate Blood Pressure Blood Pressure [Le ft Arm] Pulse Oximetry 95 Oxygen Delivery Me thod HENMT: normocephalic, head/scalp atraumatic, hearing grossly normal bilaterally, external ears normal, TMs normal bilaterally, nasal mucous membranes abnormal (nasal discharge) (Mild clear rhinorrhea), external nose normal, oral mucous membranes abnormal (dry) and oropharynx abnormal (erythema) (Mild pharyngeal erythema) Eyes: PERRL, EOMs intact bilaterally, conjunctivae normal, no scleral icterus, alignment normal and periorbital findings normal Neck/C-Spine: visual inspection normal, trachea midline, cervical spine nontender, cervical full ROM noted, supple and no meningeal signs Lymph: no lymphadenopathy noted Chest: inspection of chest normal and palpation of chest normal Respiratory: breath sounds equal bilaterally, normal respiratory effort, auscultation abnormal (diminished breath sound) (Bilateral bases - improving), wheezing noted (improving) (expiratory wheezes) (Diffuse) and (inspiratory wheezes) (Diffuse) and no use of accessory muscles Cardiovascular: normal heart rate noted, regular rhythm noted and no murmur Gastrointestinal: abdomen normal to inspection, abdomen soft to palpation, tender to palpation (mild) and (RUQ), nondistended, normoactive bowel sounds, no hepatosplenomegaly and no masses tender RUQ Genitourinary: no CVA tenderness and bladder normal to palpation Back/Pelvis: spine normal to inspection, no thoracic spine tenderness, no lumbar spine tenderness, thoracic spine ROM normal and lumbar spine ROM normal Extremities: normal to inspection, normal to palpation, no tenderness, full ROM and no deformity 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, no movement abnormality noted, no focal motor deficit noted, no sensory deficits noted, gait normal, speech normal, coordination normal and GCS normal Psychiatry: mental status grossly normal, oriented x3, thought process normal, cooperative and affect normal Skin: skin color normal, no rash, skin turgor normal and no jaundice Progress Note: Objective Labs Labs: CBC WBC 10.0 K/uL (4.3-9.3) H 10/12/24 06:25 RBC 4.4 M/uL (4.00-5.50) 10/12/24 06:25 Hgb 12.6 gm/dL (12.5-15.8) 10/12/24 06:25 Hct 38.0 % (35.9-46.7) 10/12/24 06:25 MCV 86.6 fl (81.0-93.7) 10/12/24 06:25 MCH 28.7 pg (27.6-32.2) 10/12/24 06:25 MCHC 33.2 g/dl (33.1-35.3) 10/12/24 06:25 RDW 14.5 % (11.4-14.2) H 10/12/24 06:25 Plt Count 341 K/uL (152-353) 10/12/24 06:25 MPV 8.4 fl (6.9-10.8) 10/12/24 06:25 Gran % 88.9 % (47.8-71.3) H 10/12/24 06:25 Lymph % (Auto) 8.1 % (20.0-43.0) L 10/12/24 06:25 [place] % (Auto) 2.8 % (3.6-9.8) L 10/12/24 06:25 Eos % (Auto) 0.0 % (0.4-2.8) L 10/12/24 06:25 Baso % (Auto) 0.2 (0.1-0.85) 10/12/24 06:25 Lymph # (Auto) 0.8 (1.1-3.1) L 10/12/24 06:25 [place] # (Auto) 0.3 (1.1-3.1) L 10/12/24 06:25 Eos # (Auto) 0.0 (0.0-0.2) 10/12/24 06:25 Baso # (Auto) 0.0 (0.0-0.1) 10/12/24 06:25 Absolute Gran (auto) 8.9 (2.3-6.0) H 10/12/24 06:25 BMP Sodium 139 mmol/L (136-145) 10/11/24 06:35 Potassium 4.0 mmol/L (3.6-5.2) 10/11/24 06:35 Chloride 103.0 mmol/L (98-107) 10/11/24 06:35 Carbon Dioxide 29 mmol/L (21-32) 10/11/24 06:35 Anion Gap 7.0 mEq/L (4-14) 10/11/24 06:35 BUN 14 mg/dL (7-18) 10/11/24 06:35 Creatinine 0.8 mg/dL (0.6-1.3) 10/11/24 06:35 Estimated GFR 79.7 (>59.9) 10/11/24 06:35 Glucose 365 mg/dL (70-110) H 10/11/24 06:35 Calcium 9.4 mg/dL (8.5-10.1) 10/11/24 06:35 Total Bilirubin 0.34 mg/dL (0.0-1.0) 10/11/24 06:35 AST 25 U/L (15-37) 10/11/24 06:35 ALT 48 U/L (30-65) 10/11/24 06:35 Alkaline Phosphatase 96 U/L (50-136) 10/11/24 06:35 Total Protein 8.2 g/dL (6.4-8.2) 10/11/24 06:35 Albumin 2.7 g/dL (3.4-5.0) L 10/11/24 06:35 Cardiac Enzymes Troponin I High Sens 30.10 ng/L (4.0-60.4) 10/09/24 21:55 Liver Function Total Bilirubin 0.34 mg/dL (0.0-1.0) 10/11/24 06:35 AST 25 U/L (15-37) 10/11/24 06:35 ALT 48 U/L (30-65) 10/11/24 06:35 Alkaline Phosphatase 96 U/L (50-136) 10/11/24 06:35 Total Protein 8.2 g/dL (6.4-8.2) 10/11/24 06:35 Albumin 2.7 g/dL (3.4-5.0) L 10/11/24 06:35 Urine Urine Color Yellow (STRAW/YELL.) 10/09/24 18:35 Urine Appearance Clear (CLEAR) 10/09/24 18:35 Ur Specific [place] 1.015 (1.001-1.035) 10/09/24 18:35 Urine Protein 4+ (NEGATIVE) 10/09/24 18:35 Urine Glucose (UA) Normal (NORMAL) 10/09/24 18:35 Urine Ketones Negative (NEGATIVE) 10/09/24 18:35 Urine Occult Blood 1+ (NEG - TRACE) 10/09/24 18:35 Urine Nitrite Negative (NEGATIVE) 10/09/24 18:35 Urine Bilirubin Negative (NEGATIVE) 10/09/24 18:35 Urine Urobilinogen Normal (NORMAL) 10/09/24 18:35 Ur Leukocyte Esterase Negative (NEGATIVE) 10/09/24 18:35 Imaging Chest x-ray: Radiologist's impression: XR CHEST 2V Date of Service: 10/11/24 HISTORY: PLEURISY; HYPOXEMIA; DYSPNEA; BRONCHITIS; CV/KK COMPARISON: October 09, 2024 FINDINGS: The trachea is midline. The cardiac silhouette is mildly enlarged with status post CABG surgery.. The lungs are clear without focal infiltrate or effusion. The bony thorax is unremarkable. IMPRESSION: No acute cardiopulmonary disease. Progress Note: A&P Assessment and Plan (1) Acute bronchitis: Assessment and Plan: Improving. Qualifiers: Bronchitis organism: unspecified organism Qualified Code(s): J20.9 - Acute bronchitis, unspecified (2) SOB (shortness of breath): Assessment and Plan: Improving (3) Hypoxia: Assessment and Plan: Resolved. (4) Dyspnea: Assessment and Plan: Improving Qualifiers: Dyspnea type: shortness of breath Qualified Code(s): R06.02 - Shortness of breath (5) Rhabdomyolysis: Assessment and Plan: Resolved Qualifiers: Rhabdomyolysis type: non-traumatic Qualified Code(s): M62.82 - Rhabdomyolysis (6) Dehydration: Assessment and Plan: Resolved. (7) Mild cardiomegaly: (8) COPD exacerbation: Plan Sodium Chloride 1,000 mls @ 125 mls/hr IV CONT - Considering decrease to 85 ml/hr Methylprednisolone Sodium Succinate 40 mg INJ Q8H Albuterol 2.5 mg INH RQ4 Pantoprazole Sodium 40 mg PO Daily Enoxaparin Sodium 40 mg SUBQ Daily Guaifenesin 600 mg PO BID Amlodipine Besylate 10 mg PO Daily Aspirin 81 mg PO Daily Diclofenac Sodium 75 mg PO BID Flovent Diskus 1 INH BID Metoprolol Tartrate 12.5 mg PO BID Sertraline Hcl 50 mg PO BEDTIME Prednisone 20 mg PO DAILY Amoxicillin/Clavulanate Potassium 875 mg PO BID Acetaminophen 1,000 mg PO Q6H PRN Magnesium Hydroxide 30 ml PO Daily PRN Bisacodyl 10 mg [place] Daily PRN Ibuprofen 600 mg PO Q8H PRN Ondansetron Hcl 4 mg INJ Q6H PRN Change meds to PO tomorrow. Discharge with regular inhaler (1) puff once a day for maintenance. Follow up with PCP within 2 weeks of discharge Fall Risk Details Fang Fall Scale Risk Level: Low Fall Risk Current Medications: Current Medications Acetaminophen (Acetaminophen 500 Mg Tablet) 1,000 mg PO Q6H PRN PRN Reason: MILD PAIN SCALE 1-4 Acetaminophen (Acetaminophen 500 Mg Tablet) 1,000 mg PO Q6H PRN PRN Reason: Fever OF 100.5 OR GREATER Albuterol (Albuterol Sulfate 2.5 Mg/3 Ml Vial.Neb) 2.5 mg INH RQ4 [facility] Last Admin: 10/12/24 07:49 Dose: 2.5 mg Amlodipine Besylate (Amlodipine Besylate 5 Mg Tablet) 10 mg PO DAILY [facility] Last Admin: 10/12/24 09:19 Dose: 10 mg Amoxicillin/Clavulanate Potassium (Amoxicillin/Potassium Clav 875/125 Mg Tablet) 1 each PO BID [facility] Last Admin: 10/12/24 09:59 Dose: Not Given Aspirin (Aspirin 81 Mg Tablet.) 81 mg PO DAILY [facility] Last Admin: 10/12/24 09:17 Dose: 81 mg Bisacodyl (Bisacodyl 10 Mg Supp.Rect) 10 mg [place] DAILY PRN PRN Reason: constipation Diclofenac Sodium (Diclofenac Sodium 75 Mg Tablet.) 75 mg PO BID [facility] Last Admin: 10/12/24 09:57 Dose: Not Given Enoxaparin Sodium (Enoxaparin Sodium 40 Mg/0.4 Ml Syringe) 40 mg SUBQ DAILY [facility] Last Admin: 10/12/24 09:18 Dose: 40 mg Guaifenesin (Guaifenesin 600 Mg Tab.Er.12h) 600 mg PO BID [facility] Last Admin: 10/12/24 09:17 Dose: 600 mg Sodium Chloride (Sodium Chloride) 1,000 mls @ 125 mls/hr IV CONT [facility] Last Admin: 10/12/24 02:15 Dose: 85 mls/hr Ibuprofen (Ibuprofen 400 Mg Tablet) 600 mg PO Q8H PRN PRN Reason: MILD PAIN SCALE 1-4 Ibuprofen (Ibuprofen 400 Mg Tablet) 600 mg PO Q8H PRN PRN Reason: Fever OF 100.5 OR GREATER Magnesium Hydroxide (Magnesium, Aluminum Hydroxide 30 Ml Oral.Susp) 30 ml PO DAILY PRN PRN Reason: Heartburn Methylprednisolone Sodium Succinate (Methylprednisolone Sod Succ/Pf 40 Mg/Ml Vial) 40 mg INJ Q8H [facility] Stop: 10/13/24 08:55 Last Admin: 10/12/24 09:20 Dose: 40 mg Metoprolol Tartrate (Metoprolol Tartrate 25 Mg Tablet) 12.5 mg PO BID [facility] Last Admin: 10/12/24 09:17 Dose: 12.5 mg Non-Formulary Medication (Fluticasone Propionate [Flovent Diskus]) 1 inhalation INH BID [facility] Last Admin: 10/12/24 09:57 Dose: Not Given Ondansetron HCl (Ondansetron Hcl/Pf 4 Mg/2 Ml Vial) 4 mg INJ Q6H PRN PRN Reason: Nausea And Vomiting Pantoprazole Sodium (Pantoprazole Sodium 40 Mg Tablet.Dr) 40 mg PO DAILY [facility] Last Admin: 10/12/24 09:17 Dose: 40 mg Prednisone (Prednisone 10 Mg Tablet) 20 mg PO DAILY [facility] Sertraline HCl (Sertraline Hcl 50 Mg Tablet) 50 mg PO BEDTIME [facility] Last Admin: 10/11/24 20:09 Dose: 50 mg Time Spent With Patient Time: Total time spent is greater than 50% in coordination of care (as documented) at patient's floor/unit and/or counseling patient:
[2024-10-12 20:58] VITALS: RESP 19
[2024-10-13 06:13] VITALS: PULSE 68
[2024-10-13 08:34] VITALS: BP 157/85; TEMP 97.6
[2024-10-13] MEDS: predniSONE 10 MG TABLET PO SCH (09:22)
--- NOTE | 2024-10-13 16:02 | Discharge Summary ---
DS: Providers Provider Date of admission: 10/10/24 00:41 Primary care physician: NO PCP Provider Admitting clinician: Mindy Love Attending physician on admission: AMAN HINKLE Attending physician on discharge: Bruno Nielson Discharging clinician: Bruno Nielson Anticipated date of discharge: 10/13/24 DS: Diagnosis Discharge Diagnosis (1) Acute bronchitis: Qualifiers: Bronchitis organism: unspecified organism Qualified Code(s): J20.9 - Acute bronchitis, unspecified (2) SOB (shortness of breath): (3) Hypoxia: (4) Dyspnea: Qualifiers: Dyspnea type: shortness of breath Qualified Code(s): R06.02 - Shortness of breath (5) Rhabdomyolysis: Qualifiers: Rhabdomyolysis type: non-traumatic Qualified Code(s): M62.82 - Rhabdomyolysis (6) Dehydration: (7) Mild cardiomegaly: (8) COPD exacerbation: Plan Discharge home for self care. Tapering steroid dose, regular daily inhaler, z- pack, and rescue inhaler prescribed at discharge for continuation of care at home. Patient is to follow up with her PCP in [place] once she returns home. DS: Summary Hospital Course Hospital Course: 69-year-old -Faro[place] female, with past medical history significant for chronic bronchitis, hypertension, hyperlipidemia, coronary artery disease and seasonal allergies, presents to the ED this evening with complaints of 1 week history of wheezing, shortness of breath, right flank pain and foul-smelling urine. Admits to subjective fever, chills, nonproductive cough, nasal congestion, sore throat, periumbilical pain and diarrhea. Denies chest pain, nausea and vomiting, dysuria. Periumbilical abdominal pain and right flank pain are described as 5 out of 10 on pain scale, sharp, intermittent, last 2 to 3 minutes, occurs when having a bowel movement, worse with having a bowel movement, better with Bentyl. Admitted to med/surg for observation and treatment. Day 1 of hospital stay, patient's chief complaint was pain in her right upper quadrant of abdomen, pleurisy, and dry cough. Provider notes she had a prior laparoscopic cholecystectomy as scars are visible on her abdomen. Additional antibiotic added to treatment plan. CBC & D-Dimer ordered to be repeated in AM of next morning. Repeat of CXR PA&L for suspected Pleurisy of Rt. Lobe, now. Abdominal Ultrasound ordered now due to pain. Day 2 of hospital stay, patient states she is feeling better today than yesterday. Daughter of patient was at bedside, she informed provider, patient has been experiencing symptoms for one weeks prior to going to hospital. Started patient on Amoxicillin/Clavulanate Potassium 875 mg PO BID. Provider will change all medications to PO tomorrow morning if PO med tolerated well this day. Day 3 of hospital stay, the patient was in good spirits, lab work and symptoms have improved. Patient has agreed to stay with family for a couple of days prior to leaving to go back to [place]. Patient is to continue to get rest and take prescribed medication as directed. She will be discharged home with the following new medications: tapering dose of Solu-Medrol, regular inhaler for maintenance, z-pack, and rescue inhaler. Ms. Dixon is instructed to follow up with PCP as soon as she returns to [place]. Status at Discharge Functional status at discharge: independent ambulation Overall status at discharge: patient is progressing back to baseline Time Spent with Patient Time attestation: Total time spent providing and/or coordinating discharge services: Time spent: greater than 30 minutes Exam Exam: Patient was sitting up in bed with daughter at bedside upon entering the room for exam. Patient had a positive disposition. Constitutional: normal general appearance, no apparent distress, abnormal body habitus (overweight), no limitations and alert Vital Signs - 24 hr 10/12/24 16:00 10/12/24 20:00 10/12/24 20:00 Temperature 98.4 F 98 F Pulse Rate [Left] 81 77 Respiratory Rate 20 19 Blood Pressure [Le ft Arm] 148/79 147/88 Pulse Oximetry 91 L 98 99 Oxygen Delivery Me thod Room Air Nasal Cannula Oxygen Flow Rate 2 Fraction of Inspir ed Oxygen 10/12/24 23:52 10/13/24 00:00 10/13/24 04:00 Temperature 97.9 F 98.1 F Pulse Rate [Left] 73 68 Respiratory Rate 19 19 Blood Pressure [Le ft Arm] 136/83 129/75 Pulse Oximetry 99 99 99 Oxygen Delivery Me thod Nasal Cannula Room Air Room Air Oxygen Flow Rate 2 Fraction of Inspir ed Oxygen 28 10/13/24 08:00 10/13/24 08:18 Temperature 97.6 F Pulse Rate [Left] 68 Respiratory Rate 19 Blood Pressure [Le ft Arm] 157/85 Pulse Oximetry 92 L 93 L Oxygen Delivery Me thod Room Air Oxygen Flow Rate Fraction of Inspir ed Oxygen HENMT: normocephalic, head/scalp atraumatic, hearing grossly normal bilaterally, external ears normal, TMs normal bilaterally and external nose normal Eyes: PERRL, EOMs intact bilaterally, conjunctivae normal, no scleral icterus, alignment normal and periorbital findings normal Neck/C-Spine: visual inspection normal, trachea midline, cervical spine nontender, cervical full ROM noted, supple and no meningeal signs Lymph: no lymphadenopathy noted Chest: inspection of chest normal and palpation of chest normal Respiratory: breath sounds equal bilaterally, normal respiratory effort and no use of accessory muscles has basilar fine crackles worse on the right lower lung field Cardiovascular: normal heart rate noted, regular rhythm noted and no murmur Gastrointestinal: abdomen normal to inspection, abdomen soft to palpation, nondistended, normoactive bowel sounds, no hepatosplenomegaly and no masses Genitourinary: no CVA tenderness and bladder normal to palpation Back/Pelvis: spine normal to inspection, no thoracic spine tenderness, no lumbar spine tenderness, thoracic spine ROM normal and lumbar spine ROM normal Extremities: normal to inspection, normal to palpation, no tenderness, full ROM and no deformity Neurology: assembler watch train II-XII intact, no movement abnormality noted, no focal motor deficit noted, no sensory deficits noted, gait normal, speech normal, coordination normal and GCS normal Psychiatry: mental status grossly normal, oriented x3, thought process normal, cooperative and affect normal Skin: skin color normal, no rash, skin turgor normal and no jaundice DS: Data Imaging Chest x-ray: Radiologist's impression: CHEST X-RAY Date of Service: 10/09/24 HISTORY: Dyspnea. Cough. Subjective fever. TECHNIQUE: AP chest x-ray dated October 09 2024 at 7:37 PM. COMPARISON: None. FINDINGS: There is aortic atherosclerosis. The patient status post median sternotomy, presumably for CABG. There is evidence for cardiomegaly. The pulmonary vascularity and interstitial markings are diffusely prominent, consistent with minimal CHF or volume overload in the appropriate clinical setting; differential diagnosis includes (but is not limited to) bronchitis and interstitial pneumonia in the appropriate clinical setting. There is no gross focal lung consolidation, pleural effusion, or pneumothorax seen. The visualized bony structures are within normal limits. IMPRESSION: 1. Findings consistent with minimal CHF or volume overload in the appropriate clinical setting; DDX includes (but is not limited to) bronchitis and interstitial pneumonia in the appropriate clinical setting. 2. Recommend clinical correlation and appropriate follow-up CXR evaluation to ensure interval clearance as clinically warranted. 3. Consider follow-up noncontrast chest CT for further characterization as clinically warranted. XR CHEST 2V Date of Service: 10/11/24 HISTORY: PLEURISY; HYPOXEMIA; DYSPNEA; BRONCHITIS; CV/KK COMPARISON: October 09, 2024 FINDINGS: The trachea is midline. The cardiac silhouette is mildly enlarged with status post CABG surgery.. The lungs are clear without focal infiltrate or effusion. The bony thorax is unremarkable. IMPRESSION: No acute cardiopulmonary disease. CT scan - abdomen: Radiologist's impression: ADDENDUM: Please disregard impression 2. The patient has undergone a cholecystectomy. Impression 2 should read, "Colonic diverticulosis without diverticulitis. " THIS IS AN ELECTRONICALLY VERIFIED FINAL REPORT 10/09/2024 11:37 PM - Electronically signed by Wayne Cool MD EXAM: CT ABDOMEN PELVIS W CON Date of Service: 10/09/24 HISTORY: Right flank and periumbilical abdominal pain. COMPARISON: None. TECHNIQUE: Axial CT images of the abdomen and pelvis were obtained after the administration of 100 mL Isovue 370 IV contrast and reformatted into coronal and sagittal planes for further evaluation. Radiation dose: 1942.2 mGy-cm total DLP FINDINGS: Lung bases are clear. Stomach appears normal. Solid visceral organs of the upper abdomen are unremarkable. Status post cholecystectomy. Homogeneous enhancement of the kidneys without hydronephrosis or hydroureter. Unremarkable appearance of the urinary bladder. Small calcified fibroid in the uterine fundus. Otherwise, unremarkable appearance of the reproductive structures. Colonic diverticulosis without diverticulitis. Otherwise, unremarkable appearance of the small and large bowel. No evidence of acute appendicitis; although the appendix is not clearly delineated. No pneumoperitoneum. No significant fluid collection. No adenopathy. No acute osseous abnormality. IMPRESSION: 1. No acute intra-abdominal abnormality detected. 2. Cholelithiasis without imaging findings of acute cholecystitis. THIS IS AN ELECTRONICALLY VERIFIED FINAL REPORT 10/09/2024 10:27 PM - Electronically signed by Wayne Cool MD Addendum Dictated By: Wayne Cool MD Addendum Signed By: Addendum Cosigned By: DD/ TD/TT: 10/09/24 EXAM: CT ABDOMEN PELVIS W CON HISTORY: Right flank and periumbilical abdominal pain. COMPARISON: None. TECHNIQUE: Axial CT images of the abdomen and pelvis were obtained after the administration of 100 mL Isovue 370 IV contrast and reformatted into coronal and sagittal planes for further evaluation. Radiation dose: 1942.2 mGy-cm total DLP FINDINGS: Lung bases are clear. Stomach appears normal. Solid visceral organs of the upper abdomen are unremarkable. Status post cholecystectomy. Homogeneous enhancement of the kidneys without hydronephrosis or hydroureter. Unremarkable appearance of the urinary bladder. Small calcified fibroid in the uterine fundus. Otherwise, unremarkable appearance of the reproductive structures. Colonic diverticulosis without diverticulitis. Otherwise, unremarkable appearance of the small and large bowel. No evidence of acute appendicitis; although the appendix is not clearly delineated. No pneumoperitoneum. No significant fluid collection. No adenopathy. No acute osseous abnormality. IMPRESSION: 1. No acute intra-abdominal abnormality detected. 2. Cholelithiasis without imaging findings of acute cholecystitis. CT scan - chest: Radiologist's impression: CTA CHEST WITH CONTRAST Date of Service: 10/09/24 HISTORY: elevated D Dimer, Dyspneaelevated D Dimer, Dyspnea; 370 isovue, 100 ml hx: htn, cad sx: cabg COMPARISON: None. TECHNIQUE: Axial images were acquired of the chest with IV contrast for a CT angiogram. Coronal and sagittal images were provided. All images were reviewed in a variety of windows and levels. 3D 8 mm thick MIPS images were provided. RADIATION REDUCTION TECHNIQUE: Automated exposure control, Adjustment of the mA and/or kV according to patient size, or iterative reconstruction techniques were used. 8 mm thick axial MIPS images were provided. FINDINGS: THYROID GLAND: The thyroid gland is unremarkable. HEART AND VESSELS: The heart size is mildly enlarged. There is no evidence of a pericardial effusion. The thoracic aorta is normal in size without evidence of aneurysm or dissection. The main pulmonary artery size is within normal limits. There are no filling defects seen in the visualized pulmonary arteries to suggest a pulmonary embolism. LYMPHNODES: There is no evidence of axillary, mediastinal, or hilar lymphadenopathy, AIRWAY: The trachea and mainstem bronchi are patent. No intraluminal lesions are seen. LUNGS: The lungs are clear bilaterally. There is no evidence of consolidation, pleural effusion, or pneumothorax. ESOPHAGUS: The esophagus is grossly unremarkable. BONES: The visualized bones demonstrate degenerative changes. There are no concerning lytic or blastic lesions identified. UPPER ABDOMINAL STRUCTURES: The visualized portions of the upper abdominal structures demonstrate post cholecystectomy changes. IMPRESSION: Negative CT pulmonary angiogram; no evidence of pulmonary embolic disease. Mild cardiomegaly. No active cardiopulmonary disease US - abdomen: Radiologist's impression: US ABDOMEN COMPLETE Date of Service: 10/11/24 HISTORY: ruq painruq pain; GB REMOVED - COMPARISON: None. TECHNIQUE: 117 images made by the veneer production machine operator. Fernandez scale and color-flow images of the abdomen were obtained. FINDINGS: The liver is mildly enlarged with mild fatty infiltration. No mass or intrahepatic biliary duct dilatation is present. The intrahepatic inferior vena cava was imaged. The pancreatic head and body are unremarkable. The pancreatic tail is not well seen due to overlying bowel gas. The gallbladder is surgically absent. No extrahepatic biliary duct dilatation; common duct is normal. The right kidney is normal in size and echogenicity. The left kidney is normal in size and echogenicity. No hydronephrosis or solid mass. The spleen is normal in size and echogenicity. Aorta has a normal caliber with no abdominal aortic aneurysm. Aortic bifurcation not seen because of overlying bowel gas. No ascites. IMPRESSION: Mild hepatomegaly and steatosis. Status post cholecystectomy. Discharge Plan Discharge Disposition: Home, Self-Care Condition: Improved Discharge Medications: New guaifenesin [Mucinex] 600 mg Tablet Extended Release 12hr 600 mg PO BID Qty: 20 0RF prednisone 10 mg tablet 10 mg PO DIRECTED Qty: 14 0RF Rx Instructions: 2 tabs daily for 3 days then 1 tab daily for 3 days, then 1/2 tablet daily for 3 days then dc azithromycin 250 mg tablet See Rx Instructions .ROUTE .COMPLEX Qty: 6 0RF Rx Instructions: For 250 mg dose pack: take 500 mg today (day 1), then 250 mg for 4 days (days 2-5) fluticasone propion-salmeterol [Advair Diskus] 250-50 mcg/dose blister with device 1 inh inhalation BID Qty: 60 0RF Continued albuterol sulfate 90 mcg/actuation HFA aerosol inhaler 1 puff INHALATION Q6H PRN (Reason: shortness of breath or wheezing) Patient Comments: INHALE 1 PUFF BY MOUTH EVERY 6 HOURS NEEDED FOR WHEEZING amlodipine 10 mg tablet 10 mg PO DAILY Patient Comments: TAKE 1 TABLET BY MOUTH ONCE DAILY atorvastatin 20 mg tablet 20 mg PO DAILY Patient Comments: TAKE 1 TABLET BY MOUTH ONCE DAILY diclofenac sodium 75 mg tablet,delayed release (DR/EC) 75 mg PO BID Patient Comments: TAKE 1 TABLET BY MOUTH TWICE DAILY PATIENT DOES NOT TAKE DUE TO THE STOMACH ISSUES THAT IT CAUSES. LIKES THE CELEBREX BETTER. metoprolol tartrate 25 mg tablet 12.5 mg PO BID Patient Comments: TAKE 1/2 (ONE-HALF) TABLET BY MOUTH TWICE DAILY sertraline 50 mg tablet 50 mg PO BEDTIME Patient Comments: WEEK 1-2 TAKE 1/2 TABLET BY MOUTH ONCE DAILY AT BEDTIME, THEN START 1 TABLET DAILY WEEK 3 PATIENT RAN OUT OF THE MEDICATION LAST THURSDAY AND HAS NOT BEEN ABLE TO REFILL THIS MEDICATION aspirin [Ecotrin Low Strength] 81 mg tablet,delayed release (DR/EC) 81 mg PO DAILY Discontinued cetirizine 10 mg tablet 10 mg PO DAILY PRN (Reason: allergy symptoms) Patient Comments: TAKE 1 TABLET BY MOUTH ONCE DAILY FOR 30 DAYS NEEDED FOR ALLERGY SYMPTOMS fluticasone propionate 50 mcg/actuation spray,suspension 1 spray INTRANASAL DAILY Patient Comments: USE 1 SPRAY(S) IN EACH NOSTRIL ONCE DAILY fluticasone propionate [Flovent Diskus] 100 mcg/actuation blister with device 1 inh inhalation BID fexofenadine [Allergy Relief (fexofenadine)] 180 mg tablet 180 mg PO DAILY PRN (Reason: allergy symptoms) Discharge Orders: Discharge Order (Routine); Ordered 10/13/24 Ordered By: Bruno Nielson Interventions: Discharge Assessment Last Done: 10/13/24 11:46 MED/SURG & ICU Observation Charge Sheet Last Done: 10/13/24 06:09 Forms: Portal/Health Info Access Inst Follow-Ups: AJIT [Other] Discharge Date/Time: 10/13/24 13:15
== END 2024-10-13 13:15 | disposition home or self-care (01) | DRG 202 ==
LOC: ED 18:25 → MS 18:25 → OBSVTOIN 10-10 00:41 → MS 10-10 02:00
PROVIDERS: ADMIT Nurse Practitioner Family; ATTEND Family Medicine
DX: J06.9 Acute upper respiratory infection, unspecified; R50.9 Fever, unspecified; R10.33 Periumbilical pain; R80.8 Other proteinuria; E86.0 Dehydration; J20.9 Acute bronchitis, unspecified; R06.02 Shortness of breath; D72.828 Other elevated white blood cell count; I51.7 Cardiomegaly; R09.1 Pleurisy; E87.8 Other disorders of electrolyte and fluid balance, not elsewhere classified; E87.3 Alkalosis; R09.81 Nasal congestion; E87.6 Hypokalemia; E88.09 Other disorders of plasma-protein metabolism, not elsewhere classified; R19.7 Diarrhea, unspecified; M62.82 Rhabdomyolysis; R05.9 Cough, unspecified; R79.89 Other specified abnormal findings of blood chemistry; R09.02 Hypoxemia; J44.1 Chronic obstructive pulmonary disease with (acute) exacerbation; E87.1 Hypo-osmolality and hyponatremia